=== PATIENT | female | born 1950 | race Caucasian/White ===

== ENCOUNTER 2019-06-22 04:22 | Emergency (ER) | payer MEDICARE, BC ==
[2019-06-22] MEDS ORDERED: CYCLOBENZAPRINE HCL 10 MG TABLET PO ONE (07:40)
[2019-06-22] MEDS ORDERED: OXYCODONE-ACETAMINOPHEN 5-325 MG TABLET PO ONE (07:40)
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
[2019-06-22] MEDS ORDERED: HYDROCODONE/ACETAMINOPHEN 5-325 MG (6 TAB/ER DISP) PO PRN (08:46)
[2019-06-22 08:57] VITALS: BP 138/54
== END 2019-06-22 09:03 | disposition home or self-care (01) ==
LOC: ER 04:22
DX: M54.2 Cervicalgia (principal); M54.6 Pain in thoracic spine; M43.6 Torticollis; Z87.891 Personal history of nicotine dependence
CPT/HCPCS: 99283; A9270 ×3